=== PATIENT | female | born 1995 | race Caucasian/White ===

== ENCOUNTER 2017-01-01 03:24 | Emergency (ER) | payer SELFPAY ==
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
[2017-01-01 04:08] VITALS: BMI 23.2
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
[2017-01-01] MEDS ORDERED: IBUPROFEN 600 MG TABLET (FP) PO ONE ×2 (07:29→07:34)
[2017-01-01 07:46] VITALS: BP 105/53; PULSE 108; TEMP 98.2
== END 2017-01-01 07:46 | disposition home or self-care (01) ==
LOC: JER 03:24
DX: M79.645 Pain in left finger(s) (principal)
CPT/HCPCS: 73140-TC-LT; 84703; 99282-25

== ENCOUNTER 2017-04-14 16:13 | Emergency (ER) | payer SELFPAY ==
[2017-04-14 17:00] VITALS: BMI 23.2
[2017-04-14] MEDS ORDERED: ACETAMINOPHEN 1000 MG/100 ML VIAL (NON FORMULARY) IVPB ONE (17:20)
[2017-04-14] MEDS ORDERED: SODIUM CHLORIDE 2,000 ML IV STA (17:20)
[2017-04-14] MEDS ORDERED: ACETAMINOPHEN INJECTION 100 ML IVPB ONE (17:23)
[2017-04-14] MEDS ORDERED: FAMOTIDINE IV 20 MG/12 ML VIAL IVPUSH ONE (17:29)
[2017-04-14] MEDS ORDERED: CEFTRIAXONE 1 GM in DEXTROSE 5%-WATER - 50 ML IVPB ONE (17:31)
--- NOTE | 2017-04-14 17:43 | PDOC ---
History of Present Illness - General History Source: Patient Exam Limitations: No Limitations <Margarito Chow - Last Filed: 04/14/17 21:32> - General History Source: Patient Exam Limitations: No Limitations - History of Present Illness Initial Comments: 04/14/17 18:07 The patient is 21 a year old female, with a significant past medical history of Graves Disease and asthma, who presents to the emergency department with, 3 days of intermittent heart palpitations, body aches, subjective fever. Secondary to her symptoms, she reports a sore throat, headache, and intermittent , sharp chest pain, and a productive cough with yellow mucous. She reports to be noncompliant with her medication because she no longer has medical insurance. She denies recent chills or dizziness. She denies recent nausea, vomit, diarrhea or constipation. She denies recent dysuria, frequency, urgency or hematuria. She denies recent shortness of breath. Allergies: Penicillin Past surgical history: None reported. Social history: Nonsmoker. Denies EtOH use and recreational drug use. <Freeman Palmer - Last Filed: 04/14/17 21:56> - General Chief Complaint: Palpitations Stated Complaint: Palpitations Time Seen by Provider: 04/14/17 16:56 Past History - Past Medical History COPD: No Thyroid Disease: Yes (Graves disease) - Immunization History Td Vaccination: Yes Immunization Up to Date: Yes - Suicide/Smoking/Psychosocial Hx Smoking History: Current some day smoker Have you smoked in the past 12 months: Yes Information on smoking cessation initiated: No Hx Alcohol Use: No Drug/Substance Use Hx: No Substance Use Type: None <Margarito Chow - Last Filed: 04/14/17 21:32> <Freeman Palmer - Last Filed: 04/14/17 21:56> - Past Medical History Allergies/Adverse Reactions: Allergies Allergy/AdvReac Type Severity Reaction Status Date / Time Penicillins Allergy Rash Verified 04/14/17 16:54 Home Medications: Ambulatory Orders NK [No Known Home Medication] 04/14/17 Review of Systems - Review of Systems Able to Perform ROS?: Yes Comments:: 04/14/17 18:07 GENERAL/CONSTITUTIONAL: +Subjective fever. +Body aches. No chills. No weakness. HEAD, EYES, EARS, NOSE AND THROAT: +Sore throat. No change in vision. No ear pain or discharge. CARDIOVASCULAR: +Palpitations. +Chest pain. No shortness of breath. RESPIRATORY: +Productive cough. No wheezing, or hemoptysis. GASTROINTESTINAL: No nausea, vomiting, diarrhea or constipation. GENITOURINARY: No dysuria, frequency, or change in urination. MUSCULOSKELETAL: No joint or muscle swelling or pain. No neck or back pain. SKIN: No rash NEUROLOGIC: No headache, vertigo, loss of consciousness, or change in strength/ sensation. ENDOCRINE: No increased thirst. No abnormal weight change. HEMATOLOGIC/LYMPHATIC: No anemia, easy bleeding, or history of blood clots. ALLERGIC/IMMUNOLOGIC: No hives or skin allergy. All Other Systems: Reviewed and Negative <Freeman Palmer - Last Filed: 04/14/17 21:56> *Physical Exam - Vital Signs Last Vital Signs Temp Pulse Resp BP Pulse Ox 102.4 F H 20 131/76 99 04/14/17 16:45 04/14/17 16:45 04/14/17 16:45 04/14/17 16:45 <Margarito Chow - Last Filed: 04/14/17 21:32> - Vital Signs Last Vital Signs Temp Pulse Resp BP Pulse Ox 102.4 F H 150 H 20 131/76 99 04/14/17 16:45 04/14/17 16:45 04/14/17 16:45 04/14/17 16:45 04/14/17 16:45 - Physical Exam Comments: 04/14/17 17:48 GENERAL: +Mildly anxious. +Warm to touch. Awake, alert, and fully oriented HEAD: No signs of trauma EYES: PERRLA, EOMI, sclera anicteric, conjunctiva clear ENT: Auricles normal inspection, hearing grossly normal, nares patent, oropharynx clear without exudates. Moist mucosa NECK: Normal ROM, supple, no lymphadenopathy, JVD, or masses LUNGS: Breath sounds equal, clear to auscultation bilaterally. No wheezes, and no crackles HEART: +Tachycardic. Regular rate, normal S1 and S2, no murmurs, rubs or gallops ABDOMEN: Soft, nontender, normoactive bowel sounds. No guarding, no rebound. No masses EXTREMITIES: Normal range of motion, no edema. No clubbing or cyanosis. No cords, erythema, or tenderness NEUROLOGICAL: Cranial nerves II through XII grossly intact. Normal speech, normal gait SKIN: Warm, Dry, normal turgor, no rashes or lesions noted. <Freeman Palmer - Last Filed: 04/14/17 21:56> Heart Score/ECG Review #1 ECG reviewed & interpreted by me at: 17:05 04/14/17 17:41 NSR 150, no std/judy, normal axis, normal intervals, QTC 420 msec <Margarito Chow - Last Filed: 04/14/17 21:32> ED Treatment Course - LABORATORY CBC & Chemistry Diagram: 04/14/17 18:05 04/14/17 18:05 - RADIOLOGY Radiology Studies Ordered: Category Date Time Status CHEST X-RAY PORTABLE* [RAD] Stat Radiology 04/14/17 17:19 Ordered <Margarito Chow - Last Filed: 04/14/17 21:32> - LABORATORY CBC & Chemistry Diagram: 04/14/17 18:05 04/14/17 18:05 - Medications Given in the ED: ED Medications Discontinued Medications Generic Name Dose Route Start Last Admin Trade Name Freq PRN Reason Stop Dose Admin Acetaminophen 1,000 mg 04/14/17 17:20 04/14/17 17:30 Ofirmev Injection - IVPB 04/14/17 17:21 1,000 mg ONCE ONE Administration <Freeman Palmer - Last Filed: 04/14/17 21:56> Medical Decision Making - Critical Care Time Total Critical Care Time (minutes): 35 Critical Care Statement: The care of this patient involved high complexity decision making to prevent further life threatening deterioration of the patient 's condition and/or to evaluate & treat vital organ system(s) failure or risk of failure. - Medical Decision Making 04/14/17 17:43 A portion of this note was documented by scribe services under my direction. I have reviewed the details of the note, within reason, and agree with the documentation with the following case summary and management plan written by me. Patient treated in the ED. Nursing notes are reviewed and incorporated into the medical decision-making. Vital signs reviewed. Peripheral IV access obtained by the nurse, laboratory studies are drawn and sent, reviewed and interpreted by myself. Vital Signs Temp Pulse Resp BP Pulse Ox 102.4 F H 150 H 20 131/76 99 04/14/17 16:45 04/14/17 16:45 04/14/17 16:45 04/14/17 16:45 04/14/17 16:45 21-year-old female patient with history of Graves' disease, formally on methimazole, not currently adherent to her medications secondary to losing insurance, presents with fever and tachycardia. The patient reports her last 3 days of feeling body aches, sore throats, yellowish productive cough and intermittent sharp chest pain. Not exertional. Occasionally short of breath. Reports some epigastric mild discomfort but denies any vomiting or diarrhea. Denies dysuria. Patient denies sick contacts but developed a fever today. Temperatures 102.4. Has not taken any medications. We'll need to rule out sepsis. However, findings are concerning for thyrotoxicosis versus thyroid storm. Johnson-Wartofsky Point Scale is 65, suggestive of thyroid storm. Will initiate empiric antibiotics, give IVF. At this time, pt's BP is maintaining and the patient is NOT altered. Endocrinology consulted emergently and awaiting phone call back. 04/14/17 20:[address] Estrella regarding the details of the case. He recommended initiating PTU and propanolol and stated he will be consult. Pt was initiated on PTU and propanolol. And pt started on ceftriaxone, IVF and tylenol. Pt's HR improved to 110s and pt felt significantly better. CBC, BMP 04/14/17 18:05 04/14/17 18:05 CMP Sodium 135 mmol/L (136-145) L 04/14/17 18:05 Potassium 3.7 mmol/L (3.5-5.1) 04/14/17 18:05 Chloride 98 mmol/L (98-107) 04/14/17 18:05 Carbon Dioxide 24 mmol/L (21-32) 04/14/17 18:05 Anion Gap 13 (8-16) 04/14/17 18:05 BUN 6 mg/dL (7-18) L 04/14/17 18:05 Creatinine 0.2 mg/dL (0.55-1.02) L 04/14/17 18:05 Creat Clearance w eGFR > 60 (>60) 04/14/17 18:05 Random Glucose 63 mg/dL (74-106) L 04/14/17 18:05 Lactic Acid 1.0 mmol/L (0.0-2.0) 04/14/17 18:10 Calcium 8.4 mg/dL (8.5-10.1) L 04/14/17 18:05 Phosphorus 4.6 mg/dL (2.5-4.9) 04/14/17 18:05 Magnesium 1.2 mg/dL (1.8-2.4) L 04/14/17 18:05 Total Bilirubin 0.8 mg/dL (0.2-1.0) D 04/14/17 18:05 AST 14 U/L (15-37) L 04/14/17 18:05 ALT 28 U/L (12-78) 04/14/17 18:05 Alkaline Phosphatase 100 U/L (45-117) 04/14/17 18:05 Creatine Kinase 32 IU/L (26-192) 04/14/17 18:05 Troponin I < 0.02 ng/ml (0.00-0.05) 04/14/17 18:05 Total Protein 6.8 g/dl (6.4-8.2) 04/14/17 18:05 Albumin 3.5 g/dl (3.4-5.0) 04/14/17 18:05 TSH < 0.01 uIU/ml (0.358-3.74) L 04/14/17 18:05 Free T4 > 8.00 ng/dl (0.76-1.46) H 04/14/17 18:05 Serum , Qual Negative 04/14/17 18:10 Pt's blood work is significant for thyroid storm. WBC 21.6. The patient had then decided she did not want to stay. After a very lengthy discussion (including a phone call to her mother in [place], Sophie), the patient wanted to leave because she does not like hospitals. I had a discussion about heart failure, cardiovascular collapse, coma, cardiac arrest from thyroid storm and that the mortality risk is incredibly high. Despite this discussion, the patient had elected to leave against medical advice. I had instructed her that her workup and treatment is far from complete and that she's at serious risk. The patient does have capacity and able to repeat the risks to me. She is AAOx3 and oriented. The patient ultimately left against medical advice. The patient was instructed to return to the ER whenever she wanted to. <Margarito Chow - Last Filed: 04/14/17 21:32> - Medical Decision Making 04/14/17 5:25pm Call placed to Dr. Hima Cardenas for emergent endocrine consult, awaiting call back. 5:45pm Second call placed to Dr. Hima Cardenas for emergent endocrine consult, awaiting call back. 5:53pm Call placed to Dr. Adam Awad for emergent endocrine consult, case was discussed. 7:30pm Call placed to the almond paste mixer government services professional, Dr. Arie Hernandez, case was discussed. 9:00pm Call placed to Dr. Adam Awad to inform that the patient left against medical advisement. <Freeman Palmer - Last Filed: 04/14/17 21:56> *DC/Admit/Observation/Transfer <Margarito Chow - Last Filed: 04/14/17 21:32> - Attestations Scribe Attestion: 04/14/17 17:51 Documentation prepared by Freeman Palmer, acting as medical research associate for Margarito Chow MD. <Freeman Palmer - Last Filed: 04/14/17 21:56> Diagnosis at time of Disposition: Thyroid storm Qualifiers: Thyrotoxicosis type: unspecified thyrotoxicosis type Qualified Code(s): E05.91 - Thyrotoxicosis, unspecified with thyrotoxic crisis or storm - Discharge Dispostion Disposition: AGAINST MEDICAL ADVICE Condition at time of disposition: Stable - Referrals - Patient Instructions Printed Discharge Instructions: Hyperthyroidism Additional Instructions: YOU ARE LEAVING AGAINST MEDICAL ADVICE. YOU HAVE THYROID STORM. THIS IS A DEADLY DISEASE AND NEEDS TO BE TREATED. THERE IS RISK OF HEART FAILURE, COMA, WITH THIS DISEASE. IF YOU FEEL WORSE, RETURN TO THE ER.
[2017-04-14] MEDS ORDERED: PROPRANOLOL HCL 40 MG TABLET PO ONE (17:59)
[2017-04-14] MEDS ORDERED: CEFTRIAXONE 1 GM/50 ML BAG ONE (18:13)
[2017-04-14] MEDS ORDERED: PROPRANOLOL HCL 40 MG TABLET ONE (18:13)
[2017-04-14] MEDS ORDERED: FAMOTIDINE 20 MG/50 ML IVPB 20 MG/50 ML MG IVPB ONE (18:13)
[2017-04-14] MEDS ORDERED: PROPYLTHIOURACIL 50 MG TABLET (UD) PO SCH ×2 (18:15→22:00)
[2017-04-14 18:18] LABS: BASO % 0.1 % (0-2.0); HEMATOCRIT 36.5 % (32.4-45.2); HEMOGLOBIN 11.7 GM/dL (10.7-15.3); LYMPH % 10.6 % (8-40); MCH 23.3 pg (25.7-33.7); MEAN PLT VOLUME 10.3 fl (7.5-11.1); MONO % 7.7 % (3.8-10.2); NEUT % 81.6 % (42.8-82.8); PLATELET COUNT 162 K/MM3 (134-434); RBC 4.99 M/mm3 (3.60-5.2); RDW 13.8 % (11.6-15.6); WHITE BLOOD COUNT 21.6 K/mm3 (4.0-10.0)
[2017-04-14 18:22] LABS: VENOUS PC02 29.9 mmHg (38-52); VENOUS PH 7.46 (7.32-7.42)
[2017-04-14 18:34] LABS: INR 1.37 (0.82-1.09); PROTHROMBIN TIME (PATIENT) 15.5 SEC (9.98-11.88)
[2017-04-14 18:37] LABS: ACTIVATED PTT 31.9 SECONDS (26.9-34.4)
[2017-04-14 18:49] LABS: ALBUMIN 3.5 g/dl (3.4-5.0); ANION GAP 13 (8-16); BILIRUBIN,TOTAL 0.8 mg/dL (0.2-1.0); BLOOD UREA NITROGEN 6 mg/dL (7-18); CALCIUM 8.4 mg/dL (8.5-10.1); CHLORIDE 98 mmol/L (98-107); CO2 24 mmol/L (21-32); CREATININE 0.2 mg/dL (0.55-1.02); GLUCOSE,RANDOM 63 mg/dL (74-106); MAGNESIUM 1.2 mg/dL (1.8-2.4); PHOSPHOROUS 4.6 mg/dL (2.5-4.9); POTASSIUM 3.7 mmol/L (3.5-5.1); SGOT/AST 14 U/L (15-37); SGPT/ALT 28 U/L (12-78); SODIUM 135 mmol/L (136-145)
[2017-04-14 18:53] LABS: ALK PHOS 100 U/L (45-117); TOT PROT 6.8 g/dl (6.4-8.2)
[2017-04-14 18:56] VITALS: BP 137/68; PULSE 124; TEMP 98.4
[2017-04-14 19:03] LABS: HCG,QUALITATIVE URINE NEGATIVE; URINE APPEARANCE CLEAR; URINE BILIRUBIN NEGATIVE (NEGATIVE); URINE BLOOD NEGATIVE (NEGATIVE); URINE COLOR LTYELLOW; URINE GLUCOSE (UA) NEGATIVE (NEGATIVE); URINE KETONE 2+ (NEGATIVE); URINE LEUK ESTERASE NEGATIVE (NEGATIVE); URINE NITRITE NEGATIVE (NEGATIVE); URINE PROTEIN NEGATIVE (NEGATIVE); URINE UROBILINOGEN NEGATIVE mg/dL (0.2-1.0)
[2017-04-14] MEDS ORDERED: KETOROLAC TROMETHAMINE 15 MG/ML VIAL IVPUSH ONE (19:42)
--- NOTE | 2017-04-15 12:56 | EKG ---
Test Reason : Blood Pressure : / mmHG Vent. Rate : 150 BPM Atrial Rate : 150 BPM P-R Int : 118 ms QRS Dur : 064 ms QT Int : 266 ms P-R-T Axes : 079 042 041 degrees QTc Int : 420 ms SINUS TACHYCARDIA POSSIBLE LEFT ATRIAL ENLARGEMENT BORDERLINE ECG WHEN COMPARED WITH ECG OF 22-DEC-2015 17:55, VENT. RATE HAS INCREASED BY 67 BPM Confirmed by Sam Harris ([id number]) on 04/15/2017 12:56:23 PM Referred By: Confirmed By:Sam Harris
== END 2017-04-14 20:25 | disposition left against medical advice (07) ==
LOC: JER 16:13
PROC: 3E0337Z Introduction of Electrolytic and Water Balance Substance into Peripheral Vein, Percutaneous Approach (ICD-10-PCS; principal; 2017-04-14)
PROC: 3E033GC Introduction of Other Therapeutic Substance into Peripheral Vein, Percutaneous Approach (ICD-10-PCS; 2017-04-14)
PROC: 3E033GC Introduction of Other Therapeutic Substance into Peripheral Vein, Percutaneous Approach (ICD-10-PCS; 2017-04-14)
PROC: 3E033NZ Introduction of Analgesics, Hypnotics, Sedatives into Peripheral Vein, Percutaneous Approach (ICD-10-PCS; 2017-04-14)
DX: E05.01 Thyrotoxicosis with diffuse goiter with thyrotoxic crisis or storm (principal)
CPT/HCPCS: 36415; 71045-TC; 80053; 81003; 82550; 82803; 83605; 83735; 84100; 84439; 84443; 84481; 84484; 84703; 85025; 85610; 85730; 86850; 86900; 86901; 87040; 87086; 87804; 93005; 93010; 99285-25